=== PATIENT | male | born 1995 | race Caucasian/White ===

== ENCOUNTER → 2018-10-12 14:00 | Outpatient (CLI) | payer BC, SELFPAY ==
--- NOTE | 2018-10-12 14:02 | RAD_ITS ---
STUDY: X-RAY - RIGHT KNEE REASON FOR EXAM: New onset of pain, runner. TECHNIQUE: 4 view(s) of the knee. COMPARISON: None. FINDINGS: Normal visualized distal femur. Normal visualized proximal tibia and fibula. Normal proximal tibiofibular articulation. Normal medial femorotibial compartment. Normal lateral femorotibial compartment. Normal patellofemoral articulation. The soft tissue structures are unremarkable. RAD/Knee 4 or More Views IMPRESSION: Normal x-ray examination of the right knee. Electronically Signed: Caleb Layton MD at 15:00 EDT Tel , Service support ,
== END ==
PROVIDERS: Referring Provider Orthopaedic Surgery; Visit Provider Orthopaedic Surgery
DX: R52 Pain, unspecified (principal)
CPT/HCPCS: 73564

== ENCOUNTER 2018-11-27 07:00 | Outpatient (RCR) | payer OTHER, SELFPAY ==
--- NOTE | 2018-10-17 17:19 | HP.PTEVAL_ITS ---
Patient's Visit Information CHAU MATHUR is a 23 year old M referred to Physical Therapy by Kevin Begum DO with a diagnosis of R knee chondromalacia. Date of Evaluation: 10/17/18 Physical Therapist: Garry Hummel DPT, OCS, CSCS - Visit Plan Frequency: 3x /Week Duration: 4-6 Weeks Plan: 3x/week for 2-4 weeks for .. 1. REST, ensure no aggravating activities at home. 2. rollout and stretch HS, ITB, quad R. 3. NWB to WB strength painfree hip stabs and quad. 4. When painfree, gradually work back to running/elliptical and multi joint strengthening, - Subjective Findings: R knee pain. Running alot last year and it kept hurting. Had a race last summer and it hurt alot. had it checked otu in [place] and had PT and it helped. Stopped last summer and it has deteriorated. Has kept up with exercises to some extent(RDL, lunges Bosu, sidesteps with band). R patella hurts medially and laterally intermittently. Goes away for a couple day sbut then comes back. AVoids running. Elliptical sometimes but it can bother him. Doing lifting for legs and arms. Resting it seems to help for a while. Cardio he enjoys as that seems to bring it back. Sometimes waits a week or two but it comes back. No running lately. Sleep is OK. 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 Standing in lab can worsen if it already hurts. 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 Hobbies include swimmiing and biking. Is not doing biking b/c it hurts. Swimming is OK. Last to Dr. Price and gave oral antiinflammatory which has helped, it decreases pain. Pain goes away faster if he does something that bothers it. Had to run to class and pain went away quicker. - Pain R knee Pain Intensity (Out of 10): 0 Pain Intensity Range: 0, 3 - Objective Full aROM B knees. Walks I and safe. Trasnfers I, no gait abnormalities but some pain ascending and descending steps with R. Tender minimally under R patella medial and laterally today vs L. squats OK but hurt to recover on R. foot mechanics normal today. Quad and HS mod flex deficits with -35 90/90 test. ITB Min deficits. gastroc min deficits all B. strength quad and HS 5/5 B, hip abd ext 4+/5, hip rotations 4/5 B. ankles 5/5 B. reflexes 1/3 in patella and achilles. - ant drawer, - lachmans, - bounce home, + R patellar grind. - Goals Goal 1:: patient walk across campus and climb steps without pain. Goal Time Frame: 2-4 Weeks Goal 2:: I approp HEP to minimize future problems and get back to running. Goal Time Frame: 4-6 Weeks Goal 3:: Patient feel back to 95% acitvities and jogging without pain. Goal Time Frame: 4-6 Weeks - Rehabilitation Potential Physical Therapy Diagnosis: R knee chondromalacia patella Rehabilitation Potential: Fair - Anticipated Interventions Patient/Client Instruction: Educate patient on: Condition, Plan of Care For the Purpose of:: To decrease pain, To improve muscle performance and motor function, To increase tolerance to activity/condition/position, To improve ability of physical actions for home/community/work/leisure Therapeutic Exercise to Include: Strength training, Flexibilty training For the Purpose of:: To decrease pain, To improve nutrient delivery to tissue, To increase oxygenation perfusion, To increase tolerance to activity/condition/position, To improve ability of physical actions for home/c ommunity/work/leisure Manual Therapy Techniques to Include: Soft tissue mobilization For the Purpose of:: To improve nutrient delivery to tissue TENS: Yes Cryotherapy (ice pack, ice massage): Yes For the Purpose of:: To decrease pain Thank you for the opportunity to evaluate your patient. For Medicare and Medicare HMO plans, please review the plan of care and approve it. It will need to be FAXED BACK to us at [phone] for Medicare purposes. For Medicare only, by signing this I certify the plan of care. Please let me know if there are questions or concerns regarding this plan of care. Physician Signature: Date:
--- NOTE | 2018-11-27 07:24 | HP.PTDCSUM ---
HP - PT D/C Summary It has been my pleasure to treat CHAU MATHUR under orders from Kevin Begum DO, for the diagnosis of R knee chondromalacia for a total of 8 visit(s). Discharge Date: 11/27/18 Please see the following information for a summary of their discharge status. - Subjective Subjective: Doing pretty well. Got behid on exercises for finals week with stretch adn strengthen. pain now is minimal. Will try running in a month. Started db exercises, limited squats with first push on way up. Kept weights really light. Normal daily activities at this point. still avoids steps two at a time. - Pain R knee Pain Intensity (Out of 10): 0 - Overall Improvement % Improvement: 80 - Objective Objective/Function: No tenderness in R knee, full aROM, 5/5 strength knee adn 4+ in hip B. Walks well, step one and two at a time without pain. Squats with good form today without pain with bodyweight. - Goals Goal 1:: patient walk across campus and climb steps without pain. Goal Progress: Goal Met Goal 2:: I approp HEP to minimize future problems and get back to running. Goal Progress: Goal Met Goal 3:: Patient feel back to 95% acitvities and jogging without pain. Goal Progress: Progressing - Plan Plan: D/C, pt to gradually add running adn squats to tolerance and let doctor know if pain returns. - D/C Information Discharge Comments: Pt doing well with HEp adn will cotninue over summer gradually adding jogging and contact doctor if pain returns. If there are questions or concerns regarding this patient's physical therapy, please feel free to call me at [phone]. Thank you for the referral of this patient. Sincerely, Garry Hummel, DPT, OCS, CSCS
== END 2018-11-27 19:00 | disposition home or self-care (01) ==
LOC: PT 07:00
PROVIDERS: Referring Provider Orthopaedic Surgery; Visit Provider Orthopaedic Surgery
DX: M94.20 Chondromalacia, unspecified site (principal)
CPT/HCPCS: 97110; 97161; 97530